=== PATIENT | male | born 1975 | race Caucasian/White ===

== ENCOUNTER 2018-10-24 13:12 | Inpatient (IN) | payer BC ==
[~2018-10-24] VITALS: Ht 177.8 cm; Wt 101.6 kg
[2018-10-24] VITALS (8 sets, daily range): BP systolic 111–131; BP diastolic 62–78
--- NOTE | 2018-10-24 13:37 | NUR ---
ED Nurse Note: Patient walked in to ER c/o abdominal pain 10/10, N/V for 4 days. Patient alert and oriented x4 and ambulatory. skin clean and intact. calm and cooperative. pt is standing at this moment due to sitting makes pain worse. pt is in gown and on customer program specialist.
--- NOTE | 2018-10-24 13:44 | Emergency Room Report ---
History of Present Illness General Chief Complaint: Abdominal Pain Source: Patient Present Illness HPI Patient is a 43-year-old male presented after increased abdominal pain for 1 day. Started wednesday morning. Patient reports of increased epigastric pain from both flanks. He reports having some belt-like distribution. patient was noted to have increased pain to the lower abdomen as well as the upper abdomen. He denies any alcohol use. He reports having prior history of kidney stones. He denies any fever. He does report having some episodes of vomiting. He denies any diarrhea. Reports having somewhat become shaky.He denies regular alcohol or marijuana use. He denies prior surgery. He does report his urine becoming more dark lately.Patient denies any hematuria. He reports having normal bowel movements.Patient was noted to have last had water just prior to arrival. Patient's last meal was at 1030 this morning. Allergies: Coded Allergies: No Known Allergies (Unverified , 10/24/18) Patient History Past Medical History: see triage record, other - kidney stones Reviewed Nursing Documentation: PMH: Agreed; PSxH: Agreed Nursing Documentation-PMH Past Medical History: No History, Except For Hx Hypertension: Yes Review of Systems All Other Systems: negative except mentioned in HPI Physical Exam Vital Signs Date Time Temp Pulse Resp B/P (MAP) Pulse Ox O2 Delivery O2 Flow Rate FiO2 10/24/18 13:22 98.8 81 20 126/78 (94) 98 Room Air Sp02 EP Interpretation: reviewed, normal General Appearance: normal inspection, well appearing, no apparent distress, alert, GCS 15 Head: atraumatic ENT: normal ENT inspection, hearing grossly normal, normal voice Neck: normal inspection, full range of motion, supple, no bony tend Respiratory: normal inspection, lungs clear, normal breath sounds, no respiratory distress, no retraction, no wheezing Cardiovascular #1: regular rate, rhythm, no edema Gastrointestinal: soft, tenderness - right lower abdomen Genitourinary: no CVA tenderness Musculoskeletal: normal inspection, back normal, normal range of motion Neurologic: normal inspection, alert, oriented x3, responsive, landscape technician III-XII nml as tested, speech normal Psychiatric: normal inspection, judgement/insight normal, mood/affect normal Medical Decision Making Diagnostic Impression: Primary Impression: Acute abdominal pain Additional Impressions: Appendicitis, acute Renal stones Left inguinal hernia Renal cyst ER Course Patient presented for abdominal pain. Differential diagnoses included ischemic bowel, appendicitis, perforated viscus, abdominal aortic aneurysm, inferior myocardial infarction, viral gastroenteritis among others. Because of complexity of patient's case laboratory testing and imaging studies were ordered. Patient was noted to have some prior history of kidney stones. Patient's pain appears to be more localized to the right lower abdomen. Patient was noted to have some focal tenderness in that area. CT of the abdomen pelvis was ordered due to the patient's increased pain. Patient started on IV fluids. Patient was noted to have elevated white blood count 24, 000.Patient's creatinine was also somewhat elevated.CT the abdomen pelvis read by radiology showed multiple nonobstructing renal stones as well as a 13 mm appendix with some mild periappendiceal inflammation consistent with appendicitis.Left inguinal hernia containing fat only. Patient was endorsed to Dr. Mathur pending insurance authorization and final disposition. Labs Test 10/24/18 13:40 10/24/18 14:00 Urine Color Yellow Urine Appearance Clear Urine pH 5 (4.5-8.0) Urine Specific [place] 1.020 (1.005-1.035) Urine Protein 1+ (NEGATIVE) Urine Glucose (UA) Negative (NEGATIVE) Urine Ketones Negative (NEGATIVE) Urine Blood Negative (NEGATIVE) Urine Nitrite Negative (NEGATIVE) Urine Bilirubin Negative (NEGATIVE) Urine Urobilinogen 1 MG/DL (0.0-1.0) Urine Leukocyte Esterase Negative (NEGATIVE) Urine RBC 0 /HPF (0 - 0) Urine WBC 0-2 /HPF (0 - 0) Urine Squamous Epithelial Cells Occasional /LPF Urine Amorphous Sediment Few /LPF (NONE) Urine Bacteria Occasional /HPF (NONE) Urine Mucus Few /LPF (NONE/OCC) White Blood Count 24.3 K/UL (4.8-10.8) Red Blood Count 5.26 M/UL (4.70-6.10) Hemoglobin 16.2 G/DL (14.2-18.0) Hematocrit 47.9 % (42.0-52.0) Mean Corpuscular Volume 91 FL (80-99) Mean Corpuscular Hemoglobin 30.7 PG (27.0-31.0) Mean Corpuscular Hemoglobin Concent 33.7 G/DL (32.0-36.0) Red Cell Distribution Width 11.4 % (11.6-14.8) Platelet Count 237 K/UL (150-450) Mean Platelet Volume 8.1 FL (6.5-10.1) Neutrophils (%) (Auto) % (45.0-75.0) Lymphocytes (%) (Auto) % (20.0-45.0) Monocytes (%) (Auto) % (1.0-10.0) Eosinophils (%) (Auto) % (0.0-3.0) Basophils (%) (Auto) % (0.0-2.0) Differential Total Cells Counted 100 Neutrophils % (Manual) 92 % (45-75) Lymphocytes % (Manual) 4 % (20-45) Monocytes % (Manual) 4 % (1-10) Eosinophils % (Manual) 0 % (0-3) Basophils % (Manual) 0 % (0-2) Band Neutrophils 0 % (0-8) Platelet Estimate Adequate Platelet Morphology Normal Red Blood Cell Morphology Normal Prothrombin Time 10.6 SEC (9.30-11.50) Prothromb Time International Ratio 1.0 (0.9-1.1) Activated Partial Thromboplast Time 30 SEC (23-33) Sodium Level 140 MMOL/L (136-145) Potassium Level 3.8 MMOL/L (3.5-5.1) Chloride Level 100 MMOL/L (98-107) Carbon Dioxide Level 30 MMOL/L (21-32) Anion Gap 10 mmol/L (5-15) Blood Urea Nitrogen 15 mg/dL (7-18) Creatinine 1.6 MG/DL (0.55-1.30) Estimat Glomerular Filtration Rate 47.2 mL/min (>60) Glucose Level 97 MG/DL (74-106) Calcium Level 9.5 MG/DL (8.5-10.1) Total Bilirubin 1.2 MG/DL (0.2-1.0) Direct Bilirubin 0.2 MG/DL (0.0-0.3) Aspartate Amino Transf (AST/SGOT) 23 U/L (15-37) Alanine Aminotransferase (ALT/SGPT) 29 U/L (12-78) Alkaline Phosphatase 85 U/L (46-116) Total Protein 8.1 G/DL (6.4-8.2) Albumin 3.9 G/DL (3.4-5.0) Globulin 4.2 g/dL Albumin/Globulin Ratio 0.9 (1.0-2.7) Lipase 119 U/L (73-393) Last Vital Signs Date Time Temp Pulse Resp B/P (MAP) Pulse Ox O2 Delivery O2 Flow Rate FiO2 10/24/18 13:37 98.8 81 20 126/78 98 Room Air Status: unchanged Disposition: ADMITTED INPATIENT Condition: Stable Adarsh Emmanuel MD Oct 24, 2018 13:44
[2018-10-24] MEDS ORDERED: Isovue-300 100ml vial INJ PRN (13:45)
[2018-10-24 14:00] LABS: APPEARANCE,URINE CLEAR; BILIRUBIN, URINE NEGATIVE (NEGATIVE); GLUCOSE, URINE (UA) NEGATIVE (NEGATIVE); KETONES,URINE NEGATIVE (NEGATIVE); LEUKOCYTE ESTERASE ,URINE NEGATIVE (NEGATIVE); NITRITE,URINE NEGATIVE (NEGATIVE); PH,URINE 5 (4.5-8.0); PROTEIN,URINE 1+ (NEGATIVE); UROBILINOGEN,URINE 1 MG/DL (0.0-1.0)
[2018-10-24 14:11] LABS: COLOR,URINE YELLOW
[2018-10-24] MEDS ORDERED: Ketorolac 30mg Inj IV ONE (14:15)
[2018-10-24 14:31] LABS: HEMATOCRIT 47.9 % (42.0-52.0); HEMOGLOBIN 16.2 G/DL (14.2-18.0); MEAN CORPUSCULAR VOLUME 91 FL (80-99); PLATELET COUNT 237 K/UL (150-450); RED BLOOD COUNT 5.26 M/UL (4.70-6.10); RED CELL DISTRIBUTION WIDTH 11.4 % (11.6-14.8)
[2018-10-24 14:35] LABS: WHITE BLOOD COUNT 24.3 K/UL (4.8-10.8)
[2018-10-24 14:48] LABS: ANION GAP 10 mmol/L (5-15); BLOOD UREA NITROGEN 15 mg/dL (7-18); CALCIUM 9.5 MG/DL (8.5-10.1); CARBON DIOXIDE 30 MMOL/L (21-32); CHLORIDE 100 MMOL/L (98-107); CREATININE 1.6 MG/DL (0.55-1.30); POTASSIUM 3.8 MMOL/L (3.5-5.1); SODIUM 140 MMOL/L (136-145)
[2018-10-24 15:00] LABS: ALANINE AMINOTRANSFERASE 29 U/L (12-78); ALBUMIN 3.9 G/DL (3.4-5.0); ALBUMIN/GLOBULIN RATIO 0.9 (1.0-2.7); ALKALINE PHOSPHATASE 85 U/L (46-116); ASPARTATE AMINO TRANSFERASE 23 U/L (15-37); BILIRUBIN,TOTAL 1.2 MG/DL (0.2-1.0)
[2018-10-24] MEDS ORDERED: Piperacillin/Tazobactam 3.375 GM in NS 110 ML IVPB ONE (15:00)
[2018-10-24] MEDS ORDERED: Morphine Sulfate 2mg/ml Inj(IV/IM USE ONLY) IVP ONE (15:00)
[2018-10-24 15:02] LABS: BILIRUBIN,DIRECT 0.2 MG/DL (0.0-0.3)
--- NOTE | 2018-10-24 15:12 | NUR ---
ED Nurse Note: pt went down for CT in stable condition.
--- NOTE | 2018-10-24 15:25 | NUR ---
ED Nurse Note: pt came back from CT in stable condition.
--- NOTE | 2018-10-24 15:38 | NUR ---
ED Nurse Note: ERMD at bedside.
--- NOTE | 2018-10-24 15:43 | Diagnostic Imaging Report ---
Indication: Abdominal pain in the right lower quadrant. Technique: Continuous helical transaxial imaging of the abdomen and pelvis was obtained from the lung bases to the pubic symphysis during intravenous contrast administration. Coronal 2-D reformats were also obtained. Study obtained in a Siemens sensation [address] Automatic Exposure Control was utilized. Total Dose length Product (DLP): 1007.[address] Dose Index Volume (CTDIvol): 18.4 mGy Comparison: None Findings: There is evidence of acute appendicitis with dilatation of the mid to distal portion of the appendix with ill-defined wall and periappendiceal inflammation. There is no abscess. There is no free fluid. The appendix measures about 13 to 14 mm in diameter. Bowel gas pattern is nonobstructive. There is a small left inguinal hernia containing fat. There is no hydronephrosis demonstrated but there are a few punctate nonobstructive stones within both kidneys. Hypodensities within the kidneys also noted may be small cysts. Some are too small to characterize adequately on this examination. Lung bases are clear. The liver, gallbladder, pancreas and spleen appear unremarkable. There is no adrenal mass. IMPRESSION: Acute appendicitis. No evidence of rupture or abscess. Nonobstructive tiny stones within both kidneys. Suggestion of tiny bilateral renal cysts. Some are too small to characterize Small left inguinal hernia containing fat. Critical value communication. Findings were discussed via telephone with Dr. Emmanuel in the emergency department at 3:35 PM, 10/24/2018. The CT scanner at [facility] is accredited by the [employer] and the scans are performed using dose optimization techniques as appropriate to a performed exam including Automatic Exposure control.
--- NOTE | 2018-10-24 17:11 | Emergency Room Report ---
Physical Exam Vital Signs Date Time Temp Pulse Resp B/P (MAP) Pulse Ox O2 Delivery O2 Flow Rate FiO2 10/24/18 13:22 98.8 81 20 126/78 (94) 98 Room Air Medical Decision Making Diagnostic Impression: Primary Impression: Acute abdominal pain Additional Impressions: Renal stones Renal cyst Appendicitis, acute Left inguinal hernia ER Course Assumed care from Dr. Emmanuel pending ultimate disposition. Briefly, this is a 43-year-old male who presented after 1 day of abdominal pain. Found to have an acute appendicitis with significant elevation his white count. He was given IV fluids, Zosyn and was made NPO and perforation for surgery. At the time of signout we are awaiting ultimate disposition regarding transfer to [facility] versus keeping the patient here at our facility for surgery. Decision was made to keep the patient in our facility. Dr. Reich will take the patient to surgery. Remains in stable condition and pain is controlled. Laboratory Tests Test 10/24/18 13:40 10/24/18 14:00 Urine Color Yellow Urine Appearance Clear Urine pH 5 (4.5-8.0) Urine Specific [place] 1.020 (1.005-1.035) Urine Protein 1+ (NEGATIVE) H Urine Glucose (UA) Negative (NEGATIVE) Urine Ketones Negative (NEGATIVE) Urine Blood Negative (NEGATIVE) Urine Nitrite Negative (NEGATIVE) Urine Bilirubin Negative (NEGATIVE) Urine Urobilinogen 1 MG/DL (0.0-1.0) H Urine Leukocyte Esterase Negative (NEGATIVE) Urine RBC 0 /HPF (0 - 0) Urine WBC 0-2 /HPF (0 - 0) Urine Squamous Epithelial Cells Occasional /LPF Urine Amorphous Sediment Few /LPF (NONE) H Urine Bacteria Occasional /HPF (NONE) Urine Mucus Few /LPF (NONE/OCC) H White Blood Count 24.3 K/UL (4.8-10.8) *H Red Blood Count 5.26 M/UL (4.70-6.10) Hemoglobin 16.2 G/DL (14.2-18.0) Hematocrit 47.9 % (42.0-52.0) Mean Corpuscular Volume 91 FL (80-99) Mean Corpuscular Hemoglobin 30.7 PG (27.0-31.0) Mean Corpuscular Hemoglobin Concent 33.7 G/DL (32.0-36.0) Red Cell Distribution Width 11.4 % (11.6-14.8) L Platelet Count 237 K/UL (150-450) Mean Platelet Volume 8.1 FL (6.5-10.1) Neutrophils (%) (Auto) % (45.0-75.0) Lymphocytes (%) (Auto) % (20.0-45.0) Monocytes (%) (Auto) % (1.0-10.0) Eosinophils (%) (Auto) % (0.0-3.0) Basophils (%) (Auto) % (0.0-2.0) Differential Total Cells Counted 100 Neutrophils % (Manual) 92 % (45-75) H Lymphocytes % (Manual) 4 % (20-45) L Monocytes % (Manual) 4 % (1-10) Eosinophils % (Manual) 0 % (0-3) Basophils % (Manual) 0 % (0-2) Band Neutrophils 0 % (0-8) Platelet Estimate Adequate Platelet Morphology Normal Red Blood Cell Morphology Normal Prothrombin Time 10.6 SEC (9.30-11.50) Prothromb Time International Ratio 1.0 (0.9-1.1) Activated Partial Thromboplast Time 30 SEC (23-33) Sodium Level 140 MMOL/L (136-145) Potassium Level 3.8 MMOL/L (3.5-5.1) Chloride Level 100 MMOL/L (98-107) Carbon Dioxide Level 30 MMOL/L (21-32) Anion Gap 10 mmol/L (5-15) Blood Urea Nitrogen 15 mg/dL (7-18) Creatinine 1.6 MG/DL (0.55-1.30) H Estimat Glomerular Filtration Rate 47.2 mL/min (>60) Glucose Level 97 MG/DL (74-106) Calcium Level 9.5 MG/DL (8.5-10.1) Total Bilirubin 1.2 MG/DL (0.2-1.0) H Direct Bilirubin 0.2 MG/DL (0.0-0.3) Aspartate Amino Transf (AST/SGOT) 23 U/L (15-37) Alanine Aminotransferase (ALT/SGPT) 29 U/L (12-78) Alkaline Phosphatase 85 U/L (46-116) Troponin I 0.000 ng/mL (0.000-0.056) Total Protein 8.1 G/DL (6.4-8.2) Albumin 3.9 G/DL (3.4-5.0) Globulin 4.2 g/dL Albumin/Globulin Ratio 0.9 (1.0-2.7) L Lipase 119 U/L (73-393) Last Vital Signs Date Time Temp Pulse Resp B/P (MAP) Pulse Ox O2 Delivery O2 Flow Rate FiO2 10/24/18 15:27 98.8 10/24/18 13:37 81 20 126/78 98 Room Air Disposition: ADMITTED INPATIENT Condition: Stable Referrals: [facility],REFERRING (PCP) Elver Mathur MD Oct 24, 2018 17:11
--- NOTE | 2018-10-24 17:16 | Consultation ---
History of Present Illness General Date patient seen: Oct 24, 2018 Reason for Hospitalization: Abdominal Pain Present Illness HPI This is a very pleasant 43-year-old male who presented to the emerge department [facility] complaining of worsening abdominal pain. Patient states that approximately 2 days ago he began to develop some acute lower abdominal pain. Initially thought it could potentially be kidney stones as he has had them in the past and tried home remedy with pain medication but pain progressed and continued to worsen and localized in the right lower quadrant. Pain associated with nausea and nonbilious nonbloody emesis. Pain described as 10 out of 10 out of max sharp right lower quadrant pain which is consistently approximately 6 unless movement or palpation making it worse. In emergency department identified to have a leukocytosis. CT scan consistent with acute appendicitis. Surgery called to evaluate. Patient seen, patient [place], chart reviewed. Allergies: Coded Allergies: No Known Allergies (Unverified , 10/24/18) Patient History History Provided By: Patient, Medical Record, PMD Healthcare decision maker Resuscitation status Advanced Directive on File Past Medical/Surgical History Past Medical/Surgical History: (1) Acute abdominal pain (2) Renal cyst (3) Appendicitis, acute (4) Renal stones (5) Left inguinal hernia Review of Systems Review of Symptoms General ROS: no weight loss or fever Psychological ROS: no depression or mood changes, no memory loss Ophthalmic ROS: no visual changes or eye irritation ENT ROS: no nasal congestion, hearing loss, dizziness Allergy and Immunology ROS: no allergic symptoms or urticaria Hematological and Lymphatic ROS: no swollen glands, unusual bleeding or bruising Endocrine ROS: no polyuria, polydipsia, weight changes, temperature intolerance Respiratory ROS: no cough, shortness of breath, or wheezing Cardiovascular ROS: no chest pain or dyspnea on exertion Gastrointestinal ROS: abdominal pain, no bright red blood in stool. Musculoskeletal ROS: no myalgias or arthralgias Neurological ROS: no TIA or stroke symptoms Dermatological ROS: no new or changing skin lesions, rashes or pruritis Physical Exam Physical Exam General appearance: alert, cooperative, no distress, appears stated age Head: Normocephalic, without obvious abnormality, atraumatic Eyes: conjunctivae/corneas clear. PERRL, EOM's intact. Fundi benign Throat: Lips, mucosa, and tongue normal. Teeth and gums normal Neck: supple, symmetrical, trachea midline, no adenopathy, thyroid: not enlarged, symmetric, no tenderness/mass/nodules, no carotid bruit and no JVD Lungs: clear to auscultation bilaterally Heart: regular rate and rhythm, S1, S2 normal, no murmur, click, rub or gallop Abdomen: soft, RLQ-tender. Bowel sounds normal. No masses, no organomegaly; ventral umbilical hernia with incarcerated fat Extremities: extremities normal, atraumatic, no cyanosis or edema Pulses: 2+ and symmetric Skin: Skin color, texture, turgor normal. No rashes or lesions Neurologic: Grossly normal Last 24 Hour Vital Signs Date Time Temp Pulse Resp B/P (MAP) Pulse Ox O2 Delivery O2 Flow Rate FiO2 10/24/18 15:27 98.8 10/24/18 14:55 98.8 10/24/18 13:37 98.8 81 20 126/78 98 Room Air 10/24/18 13:37 81 20 Room Air 10/24/18 13:22 98.8 81 20 126/78 (94) 98 Room Air Laboratory Tests Test 10/24/18 13:40 10/24/18 14:00 Urine Color Yellow Urine Appearance Clear Urine pH 5 (4.5-8.0) Urine Specific [place] 1.020 (1.005-1.035) Urine Protein 1+ (NEGATIVE) H Urine Glucose (UA) Negative (NEGATIVE) Urine Ketones Negative (NEGATIVE) Urine Blood Negative (NEGATIVE) Urine Nitrite Negative (NEGATIVE) Urine Bilirubin Negative (NEGATIVE) Urine Urobilinogen 1 MG/DL (0.0-1.0) H Urine Leukocyte Esterase Negative (NEGATIVE) Urine RBC 0 /HPF (0 - 0) Urine WBC 0-2 /HPF (0 - 0) Urine Squamous Epithelial Cells Occasional /LPF Urine Amorphous Sediment Few /LPF (NONE) H Urine Bacteria Occasional /HPF (NONE) Urine Mucus Few /LPF (NONE/OCC) H White Blood Count 24.3 K/UL (4.8-10.8) *H Red Blood Count 5.26 M/UL (4.70-6.10) Hemoglobin 16.2 G/DL (14.2-18.0) Hematocrit 47.9 % (42.0-52.0) Mean Corpuscular Volume 91 FL (80-99) Mean Corpuscular Hemoglobin 30.7 PG (27.0-31.0) Mean Corpuscular Hemoglobin Concent 33.7 G/DL (32.0-36.0) Red Cell Distribution Width 11.4 % (11.6-14.8) L Platelet Count 237 K/UL (150-450) Mean Platelet Volume 8.1 FL (6.5-10.1) Neutrophils (%) (Auto) % (45.0-75.0) Lymphocytes (%) (Auto) % (20.0-45.0) Monocytes (%) (Auto) % (1.0-10.0) Eosinophils (%) (Auto) % (0.0-3.0) Basophils (%) (Auto) % (0.0-2.0) Differential Total Cells Counted 100 Neutrophils % (Manual) 92 % (45-75) H Lymphocytes % (Manual) 4 % (20-45) L Monocytes % (Manual) 4 % (1-10) Eosinophils % (Manual) 0 % (0-3) Basophils % (Manual) 0 % (0-2) Band Neutrophils 0 % (0-8) Platelet Estimate Adequate Platelet Morphology Normal Red Blood Cell Morphology Normal Prothrombin Time 10.6 SEC (9.30-11.50) Prothromb Time International Ratio 1.0 (0.9-1.1) Activated Partial Thromboplast Time 30 SEC (23-33) Sodium Level 140 MMOL/L (136-145) Potassium Level 3.8 MMOL/L (3.5-5.1) Chloride Level 100 MMOL/L (98-107) Carbon Dioxide Level 30 MMOL/L (21-32) Anion Gap 10 mmol/L (5-15) Blood Urea Nitrogen 15 mg/dL (7-18) Creatinine 1.6 MG/DL (0.55-1.30) H Estimat Glomerular Filtration Rate 47.2 mL/min (>60) Glucose Level 97 MG/DL (74-106) Calcium Level 9.5 MG/DL (8.5-10.1) Total Bilirubin 1.2 MG/DL (0.2-1.0) H Direct Bilirubin 0.2 MG/DL (0.0-0.3) Aspartate Amino Transf (AST/SGOT) 23 U/L (15-37) Alanine Aminotransferase (ALT/SGPT) 29 U/L (12-78) Alkaline Phosphatase 85 U/L (46-116) Troponin I 0.000 ng/mL (0.000-0.056) Total Protein 8.1 G/DL (6.4-8.2) Albumin 3.9 G/DL (3.4-5.0) Globulin 4.2 g/dL Albumin/Globulin Ratio 0.9 (1.0-2.7) L Lipase 119 U/L (73-393) Height (Feet): 5 Height (Inches): 10.00 Weight (Pounds): 224 Medications Current Medications Medications (Trade) Dose Ordered Sig/Javier Route PRN Reason Start Time Stop Time Status Last Admin Dose Admin Iopamidol (Isovue-300 100ml) 100 ml NOW PRN INJ Radiology Procedure 10/24/18 13:45 Assessment/Plan Problem List: (1) Ventral hernia ICD Codes: K43.9 - Ventral hernia without obstruction or gangrene SNOMED: 562133798 (2) Acute abdominal pain Assessment & Plan: Findings: There is evidence of acute appendicitis with dilatation of the mid to distal portion of the appendix with ill-defined wall and periappendiceal inflammation. There is no abscess. There is no free fluid. The appendix measures about 13 to 14 mm in diameter. ICD Codes: R10.9 - Unspecified abdominal pain SNOMED: 681775775 (3) Appendicitis, acute Assessment & Plan: This is a 43-year-old male with acute uncomplicated appendicitis. Afebrile, hemodynamically stable, leukocytosis, CT scan consistent with acute appendicitis nonperforated. On examination patient with focal right lower quadrant tenderness and rebound guarding. Furthermore on examination patient with a ventral umbilical hernia that has incarcerated fat identified. Ventral hernia otherwise asymptomatic. Surgery indicating recommended. Risk medicine alternatives surgery discussed patient in detail questions and consented. In discussion with patient about operative plan decision was made to utilize the ventral hernia as a lap scopic port site and an closure repair of the hernia without mesh. Patient expressed understanding and consented to both procedures. N.p.o. IV fluids IV Abx Consent to OR for lap vs open appy ICD Codes: K35.80 - Unspecified acute appendicitis SNOMED: [id number] Willis Reich Oct 24, 2018 17:16
--- NOTE | 2018-10-24 17:20 | Pre-Procedure Note/Attestation ---
Pre-Procedure Note/Attestation Complete Prior to Procedure Planned Procedure: not applicable Procedure Narrative: 1. laparoscopic appendectomy possible open 2. ventral umbilical hernia repair Indications for Procedure Pre-Operative Diagnosis: acute appendicitis fat incarcerated ventral umbilical hernia Attestation I attest that I discussed the nature of the procedure; its benefits; risks and complications; and alternatives (and the risks and benefits of such alternatives ), prior to the procedure, with the patient (or the patient's legal dermatology sales representative). I attest that, if there was a reasonable possibility of needing a blood transfusion, the patient (or the patient's legal dermatology sales representative) was given the [place] [employer] standardized written summary, pursuant to the [place] Blood Safety Act ([place] Health and Safety Code # 1645, as amended). I attest that I re-evaluated the patient just prior to the surgery and that there has been no change in the patient's H&P, except as documented below: Willis Reich Oct 24, 2018 17:20
--- NOTE | 2018-10-24 17:31 | NUR ---
ED Nurse Note: pt stated he takes BP meds and HLD meds but does not recall the names and dosages.
[2018-10-24] MEDS ORDERED: NKM (17:32)
--- NOTE | 2018-10-24 18:06 | NUR ---
ED Nurse Note: Left for surgery to downstairs by mold repair technician in stable condition.
[2018-10-24] MEDS ORDERED: fentaNYL 100 mcg/2 mL IV ONE (18:14)
[2018-10-24] MEDS ORDERED: Midazolam 2mg/2ml Inj ONE (18:15)
[2018-10-24] MEDS ORDERED: Bupivacaine w/Epi 0.5% 30ml Vial INJ ONE (18:20)
[2018-10-24] MEDS ORDERED: Neostigmine 1mg/ml 10ml Inj ONE (18:30)
[2018-10-24] MEDS ORDERED: Sterile Water Irrig 1000ml IRRIG ONE (18:30)
[2018-10-24] MEDS ORDERED: NS Irrig 1000ml ONE (18:30)
[2018-10-24] MEDS ORDERED: Ketorolac 30mg Inj ONE (18:30)
[2018-10-24] MEDS ORDERED: Glycopyrrolate 0.2mg/ml 1ml Vial ONE (18:30)
[2018-10-24] MEDS ORDERED: LR 1000ml ONE (18:30)
[2018-10-24] MEDS ORDERED: Zemuron 50mg/5ml Inj IV ONE (18:30)
[2018-10-24] MEDS ORDERED: Propofol 200mg/20ml IV ONE (18:37)
[2018-10-24] MEDS ORDERED: Lidocaine 1% MPF 10mg/ml 5ml ONE (18:37)
[2018-10-24] MEDS ORDERED: Metoclopramide 10mg/2ml Inj ONE (18:37)
[2018-10-24] MEDS ORDERED: NS Irrig 1000ml IRRIG ONE (18:40)
--- NOTE | 2018-10-24 19:23 | Brief Operative Note ---
Immediate Post Operative Note Operative Note Pre-op Diagnosis: acute appendicitis fat incarcerated ventral umbilical hernia Procedure: lap appy ventral hernia repair Post-op Diagnosis: same as pre-op Surgeon: jaydon Anesthesiologist: mindy Anesthesia: general, local Specimen: yes Complications: none Condition: stable Fluids: see records Estimated Blood Loss: minimal Drains: none Implant(s) used?: No Willis Reich Oct 24, 2018 19:23
--- NOTE | 2018-10-24 19:28 | Immediate Post-Op Evaluation ---
Immediate Post-Op Evalulation Immediate Post-Op Evalulation Procedure: LapAppendectomy Date of Evaluation: Oct 24, 2018 Time of Evaluation: 19:27 IV Fluids: 1000 Blood Pressure Systolic: 131 Blood Pressure Diastolic: 72 Pulse Rate: 69 Respiratory Rate: 14 O2 Sat by Pulse Oximetry: 98 Nausea: No Vomiting: No Complications none Patient Status: awake, reacts, patent Hydration Status: adequate Drug: declined Sheila Morales CRNA Oct 24, 2018 19:28
--- NOTE | 2018-10-24 19:29 | Anethesia Preoperative Eval ---
Anesthesia Pre-op PMH/ROS General Date of Evaluation: Oct 24, 2018 Time of Evaluation: 18:25 Anesthesiologist: pradip ASA Score: ASA 2 Mallampati Score Class I : Soft palate, uvula, fauces, pillars visible Class II: Soft palate, uvula, fauces visible Class III: Soft palate, base of uvula visible Class IV: Only hard plate visible Mallampati Classification: Class III Surgeon: arsalan Diagnosis: appendictis Surgical Procedure: lap appy Social History: smoking Family History: no anesthesia problems Allergies: Coded Allergies: No Known Allergies (Unverified , 10/24/18) Medications: see eMAR Patient NPO?: Yes NPO Date: Oct 24, 2018 NPO Time: 00:01 Past Medical History Cardiovascular: Denies: HTN, CAD, [place], valve dz, arrhythmia, other Pulmonary: Denies: asthma, COPD, MEHRDAD, other Gastrointestinal/Genitourinary: Reports: GERD Neurologic/Psychiatric: Denies: dementia, CVA, depression/anxiety, TIA, other HEENT: Denies: cataract (L), cataract (R), glaucoma, ABSENTEE-SHAWNEE (L), ABSENTEE-SHAWNEE (R), other Hematology/Immune: Denies: anemia, DVT, bleeding disorder, other Musculoskeletal/Integumentary: Denies: OA, RA, DJD, DDD, edema, other Anesthesia Pre-op Phys. Exam Physician Exam Last Vital Signs Date Time Temp Pulse Resp B/P (MAP) Pulse Ox O2 Delivery O2 Flow Rate FiO2 10/24/18 18:06 98.8 78 20 122/74 98 Room Air Constitutional: NAD Neurologic: CN 2-12 intact Cardiovascular: RRR Respiratory: CTA Gastrointestinal: S/NT/ND Airway Exam Mallampati Score: Class III MO: full Neck: thick ROM: full Dentures: no upper, no lower Anesthesia Pre-op A/P Labs Hematology Test 10/24/18 14:00 White Blood Count 24.3 K/UL (4.8-10.8) *H Red Blood Count 5.26 M/UL (4.70-6.10) Hemoglobin 16.2 G/DL (14.2-18.0) Hematocrit 47.9 % (42.0-52.0) Mean Corpuscular Volume 91 FL (80-99) Mean Corpuscular Hemoglobin 30.7 PG (27.0-31.0) Mean Corpuscular Hemoglobin Concent 33.7 G/DL (32.0-36.0) Red Cell Distribution Width 11.4 % (11.6-14.8) L Platelet Count 237 K/UL (150-450) Mean Platelet Volume 8.1 FL (6.5-10.1) Neutrophils (%) (Auto) % (45.0-75.0) Lymphocytes (%) (Auto) % (20.0-45.0) Monocytes (%) (Auto) % (1.0-10.0) Eosinophils (%) (Auto) % (0.0-3.0) Basophils (%) (Auto) % (0.0-2.0) Differential Total Cells Counted 100 Neutrophils % (Manual) 92 % (45-75) H Lymphocytes % (Manual) 4 % (20-45) L Monocytes % (Manual) 4 % (1-10) Eosinophils % (Manual) 0 % (0-3) Basophils % (Manual) 0 % (0-2) Band Neutrophils 0 % (0-8) Platelet Estimate Adequate Platelet Morphology Normal Red Blood Cell Morphology Normal Coagulation Test 10/24/18 14:00 Prothrombin Time 10.6 SEC (9.30-11.50) Prothromb Time International Ratio 1.0 (0.9-1.1) Activated Partial Thromboplast Time 30 SEC (23-33) Chemistry Test 10/24/18 14:00 Sodium Level 140 MMOL/L (136-145) Potassium Level 3.8 MMOL/L (3.5-5.1) Chloride Level 100 MMOL/L (98-107) Carbon Dioxide Level 30 MMOL/L (21-32) Anion Gap 10 mmol/L (5-15) Blood Urea Nitrogen 15 mg/dL (7-18) Creatinine 1.6 MG/DL (0.55-1.30) H Estimat Glomerular Filtration Rate 47.2 mL/min (>60) Glucose Level 97 MG/DL (74-106) Calcium Level 9.5 MG/DL (8.5-10.1) Total Bilirubin 1.2 MG/DL (0.2-1.0) H Direct Bilirubin 0.2 MG/DL (0.0-0.3) Aspartate Amino Transf (AST/SGOT) 23 U/L (15-37) Alanine Aminotransferase (ALT/SGPT) 29 U/L (12-78) Alkaline Phosphatase 85 U/L (46-116) Troponin I 0.000 ng/mL (0.000-0.056) Total Protein 8.1 G/DL (6.4-8.2) Albumin 3.9 G/DL (3.4-5.0) Globulin 4.2 g/dL Albumin/Globulin Ratio 0.9 (1.0-2.7) L Lipase 119 U/L (73-393) Risk Assessment & Plan Assessment: denies changes in health Plan: general Status Change Before Surgery: No Pre-Antibiotics Drug: none Sheila Morales CRNA Oct 24, 2018 19:29
[2018-10-24] MEDS ORDERED: Milk of Magnesia 30ml Ud ORAL PRN (19:30)
[2018-10-24] MEDS ORDERED: Morphine Sulfate 2mg/ml Inj(IV/IM USE ONLY) IVP PRN (19:30)
[2018-10-24] MEDS ORDERED: HYDROcodone/Acetamin 10/325 tab ORAL PRN (19:30)
[2018-10-24] MEDS ORDERED: Metoclopramide 10mg/2ml Inj IVP PRN ×2 (19:30→19:45)
[2018-10-24] MEDS ORDERED: Morphine Sulfate 4mg/ml Inj (IV USE ONLY) IVP PRN (19:30)
[2018-10-24] MEDS ORDERED: HYDROcodone/Acetamin 5/325 tab ORAL PRN (19:30)
[2018-10-24] MEDS ORDERED: Sennosides 8.6mg tab ORAL PRN (19:30)
[2018-10-24] MEDS ORDERED: fentaNYL 100 mcg/2 mL IV PRN (19:45)
--- NOTE | 2018-10-24 21:30 | NUR ---
NURSE NOTES: Received handoff report from [employer]. Patient is calm and resting comfortably, VSS on 2L O2 NS. Ventral abdominal steri stips C/D/I. Abdomen soft and round with hypoactive bowel sounds in all 4 quadrants. Lungs clear bilaterally. Patient denies SOB. Peripheral IV intact and patent.
[2018-10-24] MEDS ORDERED: LOSARTAN-HCTZ1 EAC2 ORAL (21:45)
[2018-10-24] MEDS ORDERED: LIPITOR80 MG ORAL (21:45)
[2018-10-24] MEDS ORDERED: Piperacillin/Tazobactam 3.375 GM in NS 110 ML IVPB SCH (23:00)
[2018-10-24] MEDS: Zoysn 3.37gm in NS 100ML IVPB SCH (23:52)
[2018-10-25] VITALS: BP 128/71
--- NOTE | 2018-10-25 00:30 | Operative Note - Dictated ---
DATE OF OPERATION: 10/24/2018 PREOPERATIVE DIAGNOSES: 1. Acute appendicitis. 2. Incarcerated ventral umbilical hernia. POSTOPERATIVE DIAGNOSES: 1. Acute appendicitis with necrotic tip. 2. Incarcerated ventral umbilical hernia with fat. OPERATION PERFORMED: 1. Laparoscopic appendectomy. 2. Repair of incarcerated ventral umbilical hernia. ATTENDING SURGEON: Willis Reich M.D. SANITATION MANAGER: None. ANESTHESIOLOGIST: Sheila Morales CRNA. ANESTHESIA: General GETA plus local. ESTIMATED BLOOD LOSS: Minimal. IV FLUIDS: Please see anesthesia records. COMPLICATIONS: None. DRAINS: None. COUNTS: Sponge and needle count correct x2. SPECIMENS: Appendix sent to pathology for review. WOUND CLASSIFICATION: Class 3. IV ANTIBIOTICS: The patient was given 3.375 g IV Zosyn 1 hour prior to cut time. INDICATIONS FOR PROCEDURE: This is a 43-year-old male who presented to [facility] Emergency Department complaining of worsening right lower quadrant abdominal pain with associated nausea and emesis. The patient had a leukocytosis and CT scan consistent with acute uncomplicated appendicitis. Furthermore, on examination, the patient was identified to have an incarcerated fatty ventral umbilical hernia. Surgery was indicated and recommended. In discussing operative plan, decision was made for laparoscopic versus possible open appendectomy. Furthermore, given the patient's incarcerated fatty umbilical hernia and the location and size, decision was made to utilize a port site and reduce and repair of the hernia at the same time. Risks, benefits, and alternatives were discussed with the patient in detail, who expressed understanding and consented surgery. OPERATIVE NOTE: The patient was taken to the operating room and placed on the operating table in supine position with left arm tucked. All bony prominences were well padded. SCDs were placed. Preoperative time-out was taken to identify the patient, procedure, operative staff, and surgical staff. The patient already received IV antibiotics in the emergency department prior to entering the operating room. General anesthesia was induced and the patient was intubated. The abdomen was clipped, prepped, and draped in standard surgical fashion. The umbilical ventral hernia was identified and it was noted to have incarcerated fatty contents and not reducible. Local anesthetic was infiltrated and midline vertical umbilical incision was made. Once the skin was divided, the fatty tissue of the hernia sac was identified. Electrocautery was used and fascia tissue was divided at the base. This was sent to pathology along with the sac for review. The abdomen was then entered under direct visualization without complication. A 12 mm Ruy trocar was inserted and the abdomen was insufflated to 12 to 15 mmHg. A 10 mm scope was inserted and the abdomen was inspected. No injury from initial trocar placement and initial trocar placement noted. The secondary trocars placed under direct visualization beginning with a 12 mm left lower quadrant followed by a 5 mm suprapubic. Local anesthetic was infiltrated throughout all skin incisions and port sites throughout the procedure for the patient's comfort. The patient was placed in Trendelenburg position with the left side down. The cecum was identified and tenia followed until the base of the cecum was identified with the dilated distended acute appendix. The tip of the appendix was necrotic. The base of the appendix was identified and a window was made at the base of the appendix and mesoappendix. The laparoscopic linear stapler was used and the base was divided without complication. Following this, the mesoappendix was divided in a similar fashion using a laparoscopic linear stapler. Following this, the appendix was placed in the endoscopic retrieval bag and removed from the left lower quadrant port site. Inspection of the appendiceal base and staple line, there was some oozing identified and laparoscopic clips were used to obtain hemostasis. Following this, hemostasis was noted. The appendiceal base and mesoappendix staple line were hemostatic and intact without complication. At this time, we began the conclusion of our procedure. The table was flattened out and secondary trocars were removed under direct visualization. The umbilical trocar site was removed and the abdomen was desufflated. The umbilical trocar site fascia was freshened and all remaining contents were reduced into the abdominal cavity into a natural position. The ventral umbilical hernia defect was then closed and reapproximated using multiple [id number]-[id number] #0 Vicryl sutures. Following this, skin incisions were cleansed. The left lower quadrant port site fascia was reapproximated using [id number] #0 Vicryl suture. Remaining skin incisions were reapproximated using 4-0 Monocryl subcuticular interrupted sutures. Skin glue and Steri-Strips were placed. The patient tolerated the procedure well, was extubated and taken to postanesthetic care unit in stable condition. Willis Tammy Reich DR: ENRIKE JOB#: [id number] CC:
[2018-10-25 06:23] LABS: HEMATOCRIT 40.8 % (42.0-52.0); HEMOGLOBIN 14.2 G/DL (14.2-18.0); MEAN CORPUSCULAR VOLUME 89 FL (80-99); PLATELET COUNT 182 K/UL (150-450); RED BLOOD COUNT 4.58 M/UL (4.70-6.10); WHITE BLOOD COUNT 10.9 K/UL (4.8-10.8)
[2018-10-25 06:32] LABS: ANION GAP 8 mmol/L (5-15); BLOOD UREA NITROGEN 14 mg/dL (7-18); CALCIUM 8.6 MG/DL (8.5-10.1); CARBON DIOXIDE 27 MMOL/L (21-32); CHLORIDE 100 MMOL/L (98-107); CREATININE 1.5 MG/DL (0.55-1.30); POTASSIUM 3.7 MMOL/L (3.5-5.1); SODIUM 135 MMOL/L (136-145)
[2018-10-25] MEDS: Zoysn 3.37gm in NS 100ML IVPB SCH (06:33)
--- NOTE | 2018-10-25 07:25 | NUR ---
NURSE NOTES: WALKING ROUNDS DONE WITH OUTGOING RN.PATIENT AWAKE IN BED HAVING BREAKFAST, EATING SLOWLY. ABDOMINAL SURGICAL SITES C/D/I. QUESTIONS ANSWERED, NEEDS MET. DISCUSSED PLAN OF CARE FOR THE DAY. VERBALIZED UNDERSTANDING. BED IN LOWE AND LOCKED POSITION.
[2018-10-25 08:00] VITALS: BP 118/71
[2018-10-25] MEDS ORDERED: Docusate 100mg cap ORAL SCH (09:00)
--- NOTE | 2018-10-25 09:41 | History & Physical ---
History and Physical History & Physicial dict dc post op appy no BP meds or statin until eval by PMD Domingo Viveros MD Oct 25, 2018 09:40
--- NOTE | 2018-10-25 10:29 | General Progress Note ---
Progress Note Progress Note POD #1 s/p lap appy doing well tolerating diet comfortable incisional pain wounds c/d/i exam stable -rx written -d/c home -f/u given thank you Willis Riech Oct 25, 2018 10:29
--- NOTE | 2018-10-25 11:00 | NUR ---
NURSE NOTES: PATIENT REMAINS STABLE. SEEN BY SURGEON AND PMD. DISCHARGE ORDER RECEIVED; PATIENT AWARE.
--- NOTE | 2018-10-25 11:07 | 48 Hour Post Anesthesia Eval ---
Post Anesthesia Evaluation Procedure: LapAppendectomy Date of Evaluation: Oct 25, 2018 Time of Evaluation: 09:50 Blood Pressure Systolic: 118 0: 74 Pulse Rate: 68 Respiratory Rate: 20 Temperature (Fahrenheit): 97.6 O2 Sat by Pulse Oximetry: 97 Airway: patent Nausea: No Vomiting: No Pain Intensity: 2 Hydration Status: adequate Cardiopulmonary Status: stable Mental Status/LOC: patient returned to baseline Follow-up Care/Observations: n/a Post-Anesthesia Complications: none Follow-up care needed: ready to discharge Myles Zaldivar MD Oct 25, 2018 11:07
[2018-10-25] MEDS ORDERED: COLACE100 MG ORAL (11:12)
[2018-10-25] MEDS ORDERED: NORCO 5-325 TA1 EACH ORAL (11:12)
[2018-10-25 12:00] VITALS: BP 133/78
--- NOTE | 2018-10-25 12:45 | NUR ---
NURSE NOTES: DISCHARGE INSTRUCTIONS REVIEWED AND EXPLAINED TO PATIENT. RX, RETURN TO WORK NOTE AND DR. MARCELINA MCKENNA INSTRUCTIONS PROVIDED. PATIENT ACKNOWLEDGED UNDERSTANDING. DISCUSSED WILL F/U WITH PCP TO RESUME HOME MEDS PER DR. VILLAFANA RECOMMENDATIONS. ALL BELONGINGS WITH PATIENT. AMBULATORY ; GAIT STEADY.
--- NOTE | 2018-10-25 17:00 | History and Physical Report ---
DATE OF ADMISSION: 10/24/2018 HISTORY OF PRESENT ILLNESS: The patient is a pleasant 43-year-old man who came to the hospital with abdominal pain. He was found to have acute appendicitis and was taken to surgery last night by Dr. Reich. Today, he has made a smooth recovery and he is ready to go home. I came to see him as the hospitalist for his medical group. PAST MEDICAL HISTORY: Hyperlipidemia, hypertension, and kidney stones. ALLERGIES: None. MEDICATIONS: Lipitor, losartan, and hydrochlorothiazide. SOCIAL HISTORY: He is and has two children. He does not drink or smoke. He works in [employer]-related field. REVIEW OF SYSTEMS: Otherwise unremarkable. PHYSICAL EXAMINATION: GENERAL: The patient is alert and responds appropriately. VITAL SIGNS: Show normal blood pressure, pulse, and respirations. Temperature is 99.4 this morning. GENERAL: The patient is somewhat overweight. SKIN: Warm and dry. HEENT: Head is normocephalic. NECK: No jugular venous distention. CHEST: Clear. CARDIAC: Rhythm is regular. ABDOMEN: Soft with minimal tenderness. Surgical dressings are in place. EXTREMITIES: No clubbing, cyanosis, or edema. LABORATORY STUDIES: Showed a clear urine. White count was 24,000 and it came down to 10,000 this morning. Hemoglobin is normal today, but was high on admission. A left shift is noted. Chemistry shows creatinine is 1.5, BUN 14. IMPRESSION: 1. Acute appendicitis, status post laparoscopic appendectomy. 2. CKD. 3. History of kidney stones. 4. Hypertension. 5. Hyperlipidemia. PLAN: The patient is in satisfactory condition for discharge. He will go home on pain medication per Dr. Reich. We will have him hold his blood pressure and cholesterol medication until he sees his primary doctor in the next week or so. Domingo Viveros M.D. DR: VLADIMIR JOB#: [id number] CC: Willis Reich M.D.
--- NOTE | 2018-10-25 18:28 | CDS Physician Query ---
Clarification is required for compliance, coding accuracy, and to reflect severity of illness for this patient Dear Date: Presentation: pt was diagnosed with Acute appendicitis with necrotic tip, later it was documented pt has CKD Lab: WBC 24X10 Nut:92% Cr:1.6 Bill:1.2 VS: T:99.5 RR:20-18 CA:90 BP: 128/71 Rx: LAP APPY + Zosyn IV According to the clinical indications above, please indicate below the condition PHYSICIAN RESPONSE: [ ]Sepsis [ ]SIRS [ ]SIRS with organ dysfunction [ ]Septic Shock [ x ]Not applicable [ ]Other: Present on Admission: [ x] Yes [ ] No [ ]Clinically Undetermined Physician signature Date Please also document in your Progress Notes and/or Discharge Summary and indicate if the condition was present on admission. SHED
--- NOTE | 2018-10-26 10:37 | Discharge Summary ---
Discharge Summary Discharge Summary _ DATE OF ADMISSION: 10/24/2018 DATE OF DISCHARGE: 10/25/2018 DISCHARGED BY: Dr Viveros REASON FOR ADMISSION: 43 years old male with past medical history of hypertension, hyperlipidemia, kidney stones, chronic kidney disease, presented to the hospital with abdominal pain. Upon evaluation vital signs were stable. Laboratory work-up revealed leukocytosis with WBC 24.3, stable hemoglobin and hematocrit. Stable electrolytes. BUN 15, creatinine 1.6. Glucose 97. Total bilirubin 1.2, direct bilirubin 0.2, stable LFT. Lipase 119. Urinalysis revealed +1 protein, but no evidence of urinary tract infection. CT of the abdomen and pelvis demonstrated acute appendicitis no evidence of rupture or abscess. Also demonstrated left inguinal hernia , containing fat. In emergency department patient started on the IV fluids, medicated for pain, received antiemetic, given empiric antibiotic and was made NPO in preparation for surgery. Surgeon seen and evaluated patient in the emergency department. Patient appeared to be afebrile, hemodynamically stable , with leukocytosis. Per surgeon, CT scan was consistent with acute nonperforated appendicitis. On examination patient had focal right lower quadrant tenderness and rebound guarding pain. Furthermore on examination patient noted to have ventral umbilical hernia with incarcerated fat identified , otherwise was asymptomatic. Surgeon recommended surgery . Patient consented and subsequently was taken to operating room. CONSULTANTS: surgery Dr. Reich [facility] COURSE: The patient subsequently undergone laparoscopic appendectomy and repair of incarcerated ventral umbilical hernia. Patient tolerated procedure well. Postoperative course of recovery was uneventful. Patient was on empiric perioperative antibiotics. Leukocytosis resolved next day -10.9. Patient started on diet and was able to tolerate it. Pain management was addressed, and pain was controlled. Laparoscopic incision appeared to be clean, dry and intact. Patient ambulated and voided without difficulty. Prescription provided by surgeon . Patient was clear for discharge home with outpatient follow-up with the surgeon as advised in the clinic. Blood pressure was closely monitored , remained normotensive without any antihypertensive medication. Creatinine from 1.6 down to 1.5. Patient was stable for discharge home with outpatient follow-up with surgeon and primary care provider. Due to rapid and unexpected improvement in patient condition, patient was discharged in 1 day. FINAL DIAGNOSES: Acute appendicitis with necrotic tip Incarcerated ventral umbilical hernia with fat Status post laparoscopic appendectomy, and repair of incarcerated ventral umbilical hernia Chronic kidney disease Hypertension History of kidney stones Hyperlipidemia DISCHARGE MEDICATIONS: See Medication Reconciliation list. DISCHARGE INSTRUCTIONS: Patient was discharged home. Follow up with primary care provider and surgeon. I have been assigned to dictate discharge summary for this account. I was not involved in the patient's management. Brittany Rosas NP Oct 26, 2018 10:37
--- NOTE | 2018-10-26 18:44 | Cardiology Report ---
APPROVED REPORT EKG Measurement Heart [id number] Sinus rhythm with premature supraventricular complexes and with occasional premature ventricular complexes Otherwise normal ECG
== END 2018-10-25 13:10 | disposition home or self-care (01) | DRG 342 ==
LOC: EMR 14:53 → SUR 16:45 → EDBEDREQSVC 18:02 → EDBEDREQ 18:02 → 3E 21:37
DX: K35.891 Other acute appendicitis without perforation, with gangrene (principal); K42.0 Umbilical hernia with obstruction, without gangrene; E78.5 Hyperlipidemia, unspecified; I12.9 Hypertensive chronic kidney disease with stage 1 through stage 4 chronic kidney disease, or unspecified chronic kidney disease; N18.9 Chronic kidney disease, unspecified
CPT/HCPCS: 36415; 74177; 80048; 80053; 81003; 82248; 83690; 84484; 85007; 85025; 85610; 85730; 86850; 86900; 86901; 93005; 94003; 94150; 96365; 96375; 99285; J2250; J2405; J2710; J2765